=== PATIENT | male | born 1990 | race Caucasian/White ===

== ENCOUNTER 2018-01-18 23:21 | Emergency (ER) | payer OTHER ==
[~2018-01-18] VITALS: Ht 188 cm; Wt 117.9 kg
[2018-01-19] MEDS ORDERED: Robaxin500 MG PO (01:29)
== END 2018-01-19 01:42 | disposition home or self-care (01) ==
LOC: ER 23:21
DX: S29.012A Strain of muscle and tendon of back wall of thorax, initial encounter (principal); F17.200 Nicotine dependence, unspecified, uncomplicated; X58.XXXA Exposure to other specified factors, initial encounter
CPT/HCPCS: 99284